=== PATIENT | female | born 1960 | race American Indian/Alaskan Native ===

== ENCOUNTER 2020-11-30 08:31 | Observation (INO) | payer MEDICARE ==
[2020-11-30] MEDS ORDERED: ONDANSETRON 4 MG/2 ML INJ IV ONE (09:11)
[2020-11-30] MEDS ORDERED: SODIUM CHLORIDE 0.9% 500 ML 500 ML IV ONE (09:11)
[2020-11-30] MEDS ORDERED: BENZONATATE 100 MG CAP PO ONE (09:11)
[2020-11-30] MEDS ORDERED: IPRATROPIUM/ALBUTEROL SULFATE 3 ML AMPUL.NEB IH ONE (09:12)
--- NOTE | 2020-11-30 09:14 | Emergency Department Report ---
HPI - General Chief Complaint: Upper Respiratory Infection Time Seen by Provider: 11/30/20 09:03 - HPI HPI: This is a 60-year-old -[place] female who presents to the emergency department via EMS from home with complaint of a 5-day history of nausea with vomiting, a mixed dry and productive cough, shortness of breath, and some chest wall pain when coughing. Patient has a history of a previous TIA, hypertension and insulin-dependent diabetes. Accu-Chek was 201 in route. No recent travel or sick contacts at home. No known exposure to anyone with COVID-19. Her primary care physician is a Dr. Gasper Fuller at [place], but she has not been able to see them regarding her symptoms. She denies any tobacco or illicit drug use. ED Past Medical Hx - Past Medical History Previous Medical History?: Yes Hx Hypertension: Yes Hx CVA: Yes Hx Diabetes: Yes - Social History Smoking Status: Current Every Day Smoker Substance Use Type: None, Marijuana - Medications Home Medications: Home Medications Medication Instructions Recorded Confirmed Last Taken Type Apixaban [Eliquis] 5 mg PO BID 11/30/20 11/30/20 11/30/20 History -1 Fluticasone/Salmeterol [Advair 1 puff IH BID 11/30/20 11/30/20 Unknown History Diskus 250-50 mcg] Insulin Glargine,Hum.rec.anlog 50 unit SQ QHS 11/30/20 11/30/20 Unknown History [Lantus Solostar] Levothyroxine Sodium [Synthroid] 175 mcg PO DAILY 11/30/20 11/30/20 Unknown History amLODIPine [Norvasc] 10 mg PO DAILY 11/30/20 11/30/20 Unknown History ED Review of Systems ROS: Stated complaint: DIFFICULTY BREATHING Other details as noted in HPI Comment: All other systems reviewed and negative Constitutional: denies: chills, fever Eyes: denies: eye pain, vision change ENT: denies: ear pain, throat pain Respiratory: cough, shortness of breath Cardiovascular: chest pain (Chest wall pain with coughing). denies: edema Gastrointestinal: nausea, vomiting. denies: abdominal pain Genitourinary: denies: dysuria, discharge Musculoskeletal: denies: back pain, arthralgia Skin: denies: rash, lesions Neurological: denies: headache, numbness Physical Exam - Physical Exam Vital Signs: Vital Signs 11/30/20 11/30/20 08:51 08:52 Temperature 99.6 F Pulse Rate 104 H Respiratory 24 Rate O2 Sat by Pulse 99 99 Oximetry Physical Exam: GENERAL: The patient is well-developed well-nourished. HENT: Normocephalic. Atraumatic. Patient has moist mucous membranes. EYES: Extraocular motions are intact. NECK: Supple. Trachea is midline. CHEST/LUNGS: Clear to auscultation. There is tachypnea but no accessory muscle use. A productive sounding cough is heard with coughing fits. HEART/CARDIOVASCULAR: Regular. There is mild tachycardia. There is no murmur. ABDOMEN: Abdomen is soft, nontender. Patient has normal bowel sounds. SKIN: Skin is warm and dry. NEURO: The patient is awake, alert, and oriented. The patient is cooperative. The patient has no focal neurologic deficits. Normal speech. MUSCULOSKELETAL: There is no tenderness or deformity. There is no limitation range of motion. ED Course Vital Signs 11/30/20 11/30/20 08:51 08:52 Temperature 99.6 F Pulse Rate 104 H Respiratory 24 Rate O2 Sat by Pulse 99 99 Oximetry - ABG Interpretation Ph: 7.433 PCO2: 33 PO2: 68 Bicarbonate: 22 Interpretation: other (hypoxemia) ED Medical Decision Making - Lab Data Result diagrams: 11/30/20 09:17 11/30/20 09:17 - EKG Data -: EKG Interpreted by Nm EKG shows normal: sinus rhythm, axis, intervals, QRS complexes, ST-T waves Rate: tachycardia (103 bpm) - EKG Data When compared to previous EKG there are: previous EKG unavailable Interpretation: normal EKG (with mild tachycardia. ) - Radiology Data Radiology results: image reviewed interpreted by me: Chest x-ray does not show any acute process. There are no pleural effusions, obvious pneumonia and there is no pneumothorax. No significant cardiomegaly. - Medical Decision Making This patient presents with a 5-day history of some shortness of breath, coughing, generalized weakness and fatigue, nausea with vomiting and some chest wall tenderness with coughing. Chest x-ray does not show any pneumonia, pleural effusions, pneumothorax, or any other acute process. EKG does not have any morphology consistent with ST elevation myocardial infarction. Patient's initial labs were mostly unremarkable including CBC, metabolic panel, negative troponin. However, during her ED course, the patient was seen having some low oxygen saturation intermittently, it worsened when the patient was laying on her side. An ABG was done that does show hypoxemia with an SPO2 of 68 and oxygen saturation of 92% on room air. With this patient's symptoms, as well as his current pandemic, the patient is at least moderate suspicion for having COVID-19. Further blood work was ordered and drawn. She has elevated inflammatory markers including D-dimer, LDH, CRP and ferritin levels. The patient has received IV fluid, antiemetics, IV analgesia, steroids, antihypertensive medication. A CT angiography of the chest has been ordered. Medicine will follow the CT angiography results and add heparin if necessary. Otherwise the patient will be admitted to the hospital for further evaluation and treatment and was accepted for admission by the hospitalist, Dr. Arango. Critical Care Time: No Critical care attestation.: If time is entered above; I have spent that time in minutes in the direct care of this critically ill patient, excluding procedure time. ED Disposition Clinical Impression: Suspected 2019 novel coronavirus infection, Hypoxemia Dyspnea Qualifiers: Dyspnea type: shortness of breath Qualified Code(s): R06.02 - Shortness of breath; R06.00 - Dyspnea, unspecified; R06.01 - Orthopnea Hypertension Qualifiers: Hypertension type: essential hypertension Qualified Code(s): I10 - Essential (primary) hypertension Disposition: OP ADMIT IP TO THIS HOSP Is pt being admited?: Yes Condition: Serious Time of Disposition: 13:06
--- NOTE | 2020-11-30 09:37 | XRay Report ---
CHEST 1 VIEW, 11/30/2020 8:29 AM CLINICAL INFORMATION/INDICATION: Shortness of breath. Cough. COMPARISON: None. FINDINGS: SUPPORT DEVICES: None. HEART: The cardiac silhouette is normal in size. LUNGS/PLEURA: The lungs are clear of focal airspace disease or significant pleural effusion. ADDITIONAL FINDINGS: No additional acute findings. IMPRESSION: 1. No evidence of acute cardiopulmonary process. Signer Name: Sue Sun MD Signed: 11/30/2020 9:33 AM Workstation Name: [id number]
[2020-11-30 09:55] LABS: Hematocrit 42.3 % (30.3-42.9); Hemoglobin 14.1 gm/dl (10.1-14.3); Mean Corpuscular HGB Conc 33 % (30-34); Mean Corpuscular Volume 90 fl (79-97); Platelet Count 252 K/mm3 (140-440); Red Blood Count 4.68 M/mm3 (3.65-5.03); Red Cell Distribution Width 14.9 % (13.2-15.2)
[2020-11-30 10:16] LABS: Alanine Aminotransferase 18 units/L (7-56); Albumin 4.1 g/dL (3.9-5); BUN/Creatinine Ratio 9; Blood Urea Nitrogen 10 mg/dL (7-17); Calcium 9.6 mg/dL (8.4-10.2); Hemolysis Index 9
[2020-11-30] MEDS ORDERED: KETOROLAC 30 MG/1 ML INJ IV ONE (10:59)
[2020-11-30 11:17] LABS: Band Neutrophils # (Manual) 0.1 K/mm3; Platelet Estimate Consistent w Auto; RBC Morphology Normal; Total Cells Counted 100
[2020-11-30 12:55] LABS: ABG Base Excess -1.6 mmol/L (-2.0-3.0); ABG HCO3 22.1 mmol/L (20.0-26.0); ABG Methemoglobin 0.6 % (0.0-1.5); ABG Oxygen Saturation 94.7 % (95.0-99.0); ABG PCO2 33.8 mm Hg; ABG PH 7.433 pH Units (7.350-7.450)
[2020-11-30] MEDS ORDERED: dexAMETHasone 4 MG/ML VIAL IV ONE (13:05)
[2020-11-30] MEDS ORDERED: MORPHINE 4 MG/1 ML INJ IV ONE (13:39)
[2020-11-30 14:47] LABS: C-Reactive Protein 1.8 mg/dL (0.00-1.30)
[2020-11-30] MEDS: HYDROmorphone 1 MG/1 ML INJ IV PRN ×2 (15:58→21:32)
[2020-12-01 00:02] LABS: Bilirubin,Urine NEG (Negative); Blood,Urine SM (Negative); Color,Urine Yellow (Yellow); Mucus,Urine 3+ /HPF; Urobilinogen,Urine < 2.0 mg/dL (<2.0)
--- NOTE | 2020-12-01 00:44 | History and Physical Report ---
History of Present Illness Date of examination: 11/30/20 Date of admission: 11/30/20 13:06 Chief complaint: Cough and shortness of breath History of present illness: 60-year-old -[place] female with multiple medical problems including insulin-dependent diabetes, hypertension, COPD, atrial fibrillation presents to the emergency room with shortness of breath and dry productive cough and nausea/vomiting. No exposure to coronavirus. Her active problem is cough and shortness of breath. Intermittently hypoxic while in the emergency room ABG with a PO2 of 68 and O2 sat of 92% - Past Medical History Previous Medical History?: Yes --Hypertension: Yes --CVA: Yes --Diabetes: Yes --Hypothyroidism Past surgical history N/a - Social History Smoking Status: Current Every Day Smoker Substance Use Type: None, Marijuana Family history Htn - Medications Home Medications: Home Medications Medication Instructions Recorded Confirmed Last Taken Type Apixaban [Eliquis] 5 mg PO BID 11/30/20 11/30/20 11/30/20 History -1 Fluticasone/Salmeterol [Advair 1 puff IH BID 11/30/20 11/30/20 Unknown History Diskus 250-50 mcg] Insulin Glargine,Hum.rec.anlog 50 unit SQ QHS 11/30/20 11/30/20 Unknown History [Lantus Solostar] Levothyroxine Sodium [Synthroid] 175 mcg PO DAILY 11/30/20 11/30/20 Unknown History amLODIPine [Norvasc] 10 mg PO DAILY 11/30/20 11/30/20 Unknown History Review of Systems ROS: Stated complaint: DIFFICULTY BREATHING Other details as noted in HPI Comment: All other systems reviewed and negative Constitutional: denies: chills, fever Eyes: denies: eye pain, vision change ENT: denies: ear pain, throat pain Respiratory: cough, shortness of breath Cardiovascular: chest pain (Chest wall pain with coughing). denies: edema Gastrointestinal: nausea, vomiting. denies: abdominal pain Genitourinary: denies: dysuria, discharge Musculoskeletal: denies: back pain, arthralgia Skin: denies: rash, lesions Neurological: denies: headache, numbness Medications and Allergies Allergies Allergy/AdvReac Type Severity Reaction Status Date / Time codeine Allergy Rash Verified 11/30/20 08:52 Home Medications Medication Instructions Recorded Confirmed Last Taken Type Apixaban [Eliquis] 5 mg PO BID 11/30/20 11/30/20 11/30/20 History -1 Fluticasone/Salmeterol [Advair 1 puff IH BID 11/30/20 11/30/20 Unknown History Diskus 250-50 mcg] Insulin Glargine,Hum.rec.anlog 50 unit SQ QHS 11/30/20 11/30/20 Unknown History [Lantus Solostar] Levothyroxine Sodium [Synthroid] 175 mcg PO DAILY 11/30/20 11/30/20 Unknown History amLODIPine [Norvasc] 10 mg PO DAILY 11/30/20 11/30/20 Unknown History Active Meds: Active Medications Amlodipine Besylate (Amlodipine 10 Mg Tab) 10 mg PO DAILY [facility] Hydromorphone HCl (Hydromorphone 1 Mg/1 Ml Inj) 0.5 mg IV Q3H PRN PRN Reason: Pain , Severe (7-10) Last Admin: 11/30/20 21:32 Dose: 0.5 mg Documented by: Miscellaneous Medication (Apixaban) 5 mg PO BID [facility] Miscellaneous Medication (Fluticasone/Salmeterol [Advair Diskus 250-50 Mcg]) 1 puff IH BID [facility] Miscellaneous Medication (Insulin Glargine,Hum.Rec.Anlog [Lantus Solostar]) 50 unit SQ QHS [facility] Miscellaneous Medication (Levothyroxine Sodium [Synthroid]) 175 mcg PO DAILY [facility] Exam - Constitutional Vitals: Temp Pulse Resp BP Pulse Ox 98.3 F 92 H 20 150/79 93 11/30/20 22:28 11/30/20 22:28 11/30/20 22:28 11/30/20 22:28 11/30/20 22:28 General appearance: Present: no acute distress, well-nourished - EENT Eyes: Present: PERRL ENT: hearing intact, clear oral mucosa - Neck Neck: Present: supple, normal ROM - Respiratory Respiratory effort: normal Respiratory: bilateral: CTA - Cardiovascular Heart rate: 78 Rhythm: regular Heart Sounds: Present: S1 & S2. Absent: rub, click - Extremities Extremities: pulses symmetrical, No edema Peripheral Pulses: within normal limits - Abdominal General gastrointestinal: Present: soft, non-tender, non-distended, normal bowel sounds Female genitourinary: Present: normal - Integumentary Integumentary: Present: clear, warm, dry - Musculoskeletal Musculoskeletal: gait normal, strength equal bilaterally - Psychiatric Psychiatric: appropriate mood/affect, intact judgment & insight - Neurologic Neurologic: CNII-XII intact, moves all extremities HEART Score - HEART Score Troponin: Troponin T < 0.010 ng/mL (0.00-0.029) 11/30/20 09:17 Results - Labs CBC & Chem 7: 11/30/20 09:17 11/30/20 09:17 Labs: Laboratory Last Values WBC 6.5 K/mm3 (4.5-11.0) 11/30/20 09:17 RBC 4.68 M/mm3 (3.65-5.03) 11/30/20 09:17 Hgb 14.1 gm/dl (10.1-14.3) 11/30/20 09:17 Hct 42.3 % (30.3-42.9) 11/30/20 09:17 MCV 90 fl (79-97) 11/30/20 09:17 MCH 30 pg (28-32) 11/30/20 09:17 MCHC 33 % (30-34) 11/30/20 09:17 RDW 14.9 % (13.2-15.2) 11/30/20 09:17 Plt Count 252 K/mm3 (140-440) 11/30/20 09:17 Add Manual Diff Complete 11/30/20 09:17 Total Counted 100 11/30/20 09:17 Seg Neuts % (Manual) 82.0 % (40.0-70.0) H 11/30/20 09:17 Band Neutrophils % 1.0 % 11/30/20 09:17 Lymphocytes % (Manual) 11.0 % (13.4-35.0) L 11/30/20 09:17 Monocytes % (Manual) 6.0 % (0.0-7.3) 11/30/20 09:17 Nucleated RBC % Not Reportable 11/30/20 09:17 Seg Neutrophils # Man 5.3 K/mm3 (1.8-7.7) 11/30/20 09:17 Band Neutrophils # 0.1 K/mm3 11/30/20 09:17 Lymphocytes # (Manual) 0.7 K/mm3 (1.2-5.4) L 11/30/20 09:17 Abs React Lymphs (Man) 0.0 K/mm3 11/30/20 09:17 Monocytes # (Manual) 0.4 K/mm3 (0.0-0.8) 11/30/20 09:17 Eosinophils # (Manual) 0.0 K/mm3 (0.0-0.4) 11/30/20 09:17 Basophils # (Manual) 0.0 K/mm3 (0.0-0.1) 11/30/20 09:17 Metamyelocytes # 0.0 K/mm3 11/30/20 09:17 Myelocytes # 0.0 K/mm3 11/30/20 09:17 Promyelocytes # 0.0 K/mm3 11/30/20 09:17 Blast Cells # 0.0 K/mm3 11/30/20 09:17 WBC Morphology Not Reportable 11/30/20 09:17 Hypersegmented Neuts Not Reportable 11/30/20 09:17 Hyposegmented Neuts Not Reportable 11/30/20 09:17 Hypogranular Neuts Not Reportable 11/30/20 09:17 Smudge Cells Not Reportable 11/30/20 09:17 Toxic Granulation Not Reportable 11/30/20 09:17 Toxic Vacuolation Not Reportable 11/30/20 09:17 Dohle Bodies Not Reportable 11/30/20 09:17 Pelger-Huet Anomaly Not Reportable 11/30/20 09:17 Peter Rods Not Reportable 11/30/20 09:17 Platelet Estimate Consistent w auto 11/30/20 09:17 Clumped Platelets Not Reportable 11/30/20 09:17 Plt Clumps, EDTA Not Reportable 11/30/20 09:17 Large Platelets Not Reportable 11/30/20 09:17 Giant Platelets Not Reportable 11/30/20 09:17 Platelet Satelliting Not Reportable 11/30/20 09:17 Plt Morphology Comment Not Reportable 11/30/20 09:17 RBC Morphology Normal 11/30/20 09:17 Dimorphic RBCs Not Reportable 11/30/20 09:17 Polychromasia Not Reportable 11/30/20 09:17 Hypochromasia Not Reportable 11/30/20 09:17 Poikilocytosis Not Reportable 11/30/20 09:17 Anisocytosis Not Reportable 11/30/20 09:17 Microcytosis Not Reportable 11/30/20 09:17 Macrocytosis Not Reportable 11/30/20 09:17 Spherocytes Not Reportable 11/30/20 09:17 Pappenheimer Bodies Not Reportable 11/30/20 09:17 Sickle Cells Not Reportable 11/30/20 09:17 Target Cells Not Reportable 11/30/20 09:17 Tear Drop Cells Not Reportable 11/30/20 09:17 Ovalocytes Not Reportable 11/30/20 09:17 Helmet Cells Not Reportable 11/30/20 09:17 [place] Bodies Not Reportable 11/30/20 09:17 [place] Rings Not Reportable 11/30/20 09:17 [place] Cells Not Reportable 11/30/20 09:17 Bite Cells Not Reportable 11/30/20 09:17 Crenated Cell Not Reportable 11/30/20 09:17 Elliptocytes Not Reportable 11/30/20 09:17 Acanthocytes (Spur) Not Reportable 11/30/20 09:17 Rouleaux Not Reportable 11/30/20 09:17 Hemoglobin C Crystals Not Reportable 11/30/20 09:17 Schistocytes Not Reportable 11/30/20 09:17 Malaria parasites Not Reportable 11/30/20 09:17 Juan Bodies Not Reportable 11/30/20 09:17 Hem Pathologist Commnt No 11/30/20 09:17 D-Dimer 1040.14 ng/mlDDU (0-234) H 11/30/20 13:16 ABG pH 7.433 pH Units (7.350-7.450) 11/30/20 12:35 ABG pCO2 33.8 mm Hg 11/30/20 12:35 ABG pO2 68.0 mm Hg (80.0-90.0) L 11/30/20 12:35 ABG HCO3 22.1 mmol/L (20.0-26.0) 11/30/20 12:35 ABG O2 Saturation 94.7 % (95.0-99.0) L 11/30/20 12:35 ABG O2 Content 16.5 (0.0-44) 11/30/20 12:35 ABG Base Excess -1.6 mmol/L (-2.0-3.0) 11/30/20 12:35 ABG Hemoglobin 12.7 gm/dl (12.0-16.0) 11/30/20 12:35 ABG Carboxyhemoglobin 1.5 % (0.0-5.0) 11/30/20 12:35 ABG Methemoglobin 0.6 % (0.0-1.5) 11/30/20 12:35 Oxyhemoglobin 92.7 % (95.0-99.0) L 11/30/20 12:35 FiO2 21 % 11/30/20 12:35 Sodium 133 mmol/L (137-145) L 11/30/20 09:17 Potassium 3.6 mmol/L (3.6-5.0) 11/30/20 09:17 Chloride 94.9 mmol/L (98-107) L 11/30/20 09:17 Carbon Dioxide 23 mmol/L (22-30) 11/30/20 09:17 Anion Gap 19 mmol/L 11/30/20 09:17 BUN 10 mg/dL (7-17) 11/30/20 09:17 Creatinine 1.1 mg/dL (0.6-1.2) 11/30/20 09:17 Estimated GFR > 60 ml/min 11/30/20 09:17 BUN/Creatinine Ratio 9 % 11/30/20 09:17 Glucose 181 mg/dL (65-100) H 11/30/20 09:17 POC Glucose 195 mg/dL (70-105) H 11/30/20 16:53 Calcium 9.6 mg/dL (8.4-10.2) 11/30/20 09:17 Ferritin 386.9 ng/mL (10.0-200.0) H 11/30/20 13:16 Total Bilirubin 0.30 mg/dL (0.1-1.2) 11/30/20 09:17 AST 31 units/L (5-40) 11/30/20 09:17 ALT 18 units/L (7-56) 11/30/20 09:17 Alkaline Phosphatase 108 units/L (35-129) 11/30/20 09:17 Lactate Dehydrogenase 277 units/L (91-180) H 11/30/20 13:16 Troponin T < 0.010 ng/mL (0.00-0.029) 11/30/20 09:17 C-Reactive Protein 1.80 mg/dL (0.00-1.30) H 11/30/20 13:16 Total Protein 8.7 g/dL (6.3-8.2) H 11/30/20 09:17 Albumin 4.1 g/dL (3.9-5) 11/30/20 09:17 Albumin/Globulin Ratio 0.9 % 11/30/20 09:17 Urine Color Yellow (Yellow) 11/30/20 23:25 Urine Turbidity Slightly-cloudy (Clear) 11/30/20 23:25 Urine pH 6.0 (5.0-7.0) 11/30/20 23:25 Ur Specific [place] 1.023 (1.003-1.030) 11/30/20 23:25 Urine Protein 100 mg/dl mg/dL (Negative) 11/30/20 23:25 Urine Glucose (UA) Neg mg/dL (Negative) 11/30/20 23:25 Urine Ketones 20 mg/dL (Negative) 11/30/20 23:25 Urine Blood Sm (Negative) 11/30/20 23:25 Urine Nitrite Neg (Negative) 11/30/20 23:25 Urine Bilirubin Neg (Negative) 11/30/20 23:25 Urine Urobilinogen < 2.0 mg/dL (<2.0) 11/30/20 23:25 Ur Leukocyte Esterase Neg (Negative) 11/30/20 23:25 Urine WBC (Auto) 5.0 /HPF (0.0-6.0) 11/30/20 23:25 Urine RBC (Auto) 1.0 /HPF (0.0-6.0) 11/30/20 23:25 U Epithel Cells (Auto) 1.0 /HPF (0-13.0) 11/30/20 23:25 Urine Mucus 3+ /HPF 11/30/20 23:25 - Imaging and Cardiology EKG: report reviewed (Sinus rhythm no acute ST-T wave changes) Chest x-ray: report reviewed Imaging and Cardiology: Chest x-ray No evidence of acute cardiopulmonary process Thakkar/IV: Voiding Method Toilet Assessment and Plan Advance Directives: Yes (Full code) VTE prophylaxis?: Chemical Plan of care discussed with patient/family: Yes - Patient Problems (1) Acute respiratory failure with hypoxia Current Visit: Yes Status: Acute Plan to address problem: Oxygen supplementation as necessary Transient (2) Suspected 2019 novel coronavirus infection Current Visit: Yes Status: Acute Plan to address problem: Coronavirus PCR in the a.m. Initiated on IV dexamethasone ID consult was not requested If patient is doing well on room air will discharge in 24 to 48 hours (3) Hypertension Current Visit: Yes Status: Chronic Qualifiers: Hypertension type: essential hypertension Qualified Code(s): I10 - Essential (primary) hypertension Plan to address problem: Continue antihypertensives and adjust medications (4) IDDM (insulin dependent diabetes mellitus) Current Visit: Yes Status: Chronic Plan to address problem: Continue her home insulin and coverage (5) Hypothyroidism (acquired) Current Visit: Yes Status: Chronic Plan to address problem: Continue Synthroid and check TSH (6) A-fib Current Visit: Yes Status: Chronic Qualifiers: Atrial fibrillation type: persistent (not longstanding) Qualified Code(s): I48.19 - Other persistent atrial fibrillation; I48.1 - Persistent atrial fibrillation Plan to address problem: On Eliquis (7) COPD (chronic obstructive pulmonary disease) Current Visit: Yes Status: Chronic Qualifiers: Emphysema type: unspecified Plan to address problem: Continue Advair and neb treatments as needed (8) DVT prophylaxis Current Visit: Yes Status: Acute Plan to address problem: On Lovenox and GI prophylaxis
[2020-12-01] MEDS ORDERED: NON-FORMULARY EACH (Apixaban 5 MG Tablet) PO SCH (00:45)
[2020-12-01] MEDS ORDERED: NON-FORMULARY EACH (Fluticasone/Salmeterol [Advair Diskus 250-50 Mcg] 1 EACH Blst.W.Dev) IH SCH (00:45)
[2020-12-01] MEDS ORDERED: AZITHROMYCIN/NS 500 MG/250 ML 500 MG/250 ML BAG IV SCH (02:00)
[2020-12-01] MEDS: APIXABAN 5 MG TAB PO SCH ×3 (02:01→22:56)
[2020-12-01] MEDS: cefTRIAXone/NS 2 GM/100 ML 2 GM/100 ML BAG IV SCH (03:25)
[2020-12-01] MEDS: LEVOTHYROXINE 75 MCG TAB PO SCH (05:30)
[2020-12-01] MEDS: LEVOTHYROXINE 100 MCG TAB PO SCH (05:31)
[2020-12-01] MEDS: ARFORMOTEROL 15 MCG/2 ML NEBU IH SCH ×2 (07:29→19:32)
[2020-12-01] MEDS: BUDESONIDE 0.5 MG/2 ML NEBU IH SCH ×2 (07:29→19:32)
[2020-12-01] MEDS: INSULIN LISPRO 100 UNIT/ML SUB-Q SCH ×4 (08:22→22:57)
[2020-12-01] MEDS: HYDROmorphone 1 MG/1 ML INJ IV PRN ×2 (09:40→13:20)
[2020-12-01] MEDS ORDERED: LEVOTHYROXINE SODIUM 175 MCG PO SCH (10:00)
[2020-12-01] MEDS ORDERED: dexAMETHasone 4 MG/ML VIAL IV SCH (10:00)
--- NOTE | 2020-12-01 11:27 | Electrocardiograph Report ---
[facility] Test Date: 2020-11-30 Test Time: 09:40:33 Pat Name: BRAULIO DIETZ Department: Room: A358 Gender: F Pull Up Hand: ELOISE : 1960 Requested By: TOY EVANS Order Number: [id number] Reading MD: Frank Sheridan Measurements Intervals [place] Rate: 103 P: 96 MI: 188 QRS: 1 QRSD: 98 T: QT: QTc: 0 Interpretive Statements Sinus tachycardia non specific st-t No previous ECG available for comparison Electronically Signed On 12-01-2020 11:27:01 EDT by Frank Sheridan
[2020-12-01] MEDS: amLODIPine 10 MG TAB PO SCH ×2 (13:30→18:08)
[2020-12-01] MEDS ORDERED: ONDANSETRON 4 MG/2 ML INJ IV PRN (17:58)
[2020-12-01] MEDS ORDERED: INSULIN GLARGINE 100 UNITS/ML SUB-Q SCH (22:00)
[2020-12-01] MEDS ORDERED: NON-FORMULARY EACH (Insulin Glargine,Hum.Rec.Anlog [Lantus Solostar] 100 UNIT/ML Insuln.Pe SQ SCH (22:00)
[2020-12-01] MEDS: AZITHROMYCIN 250 MG TAB PO SCH (22:56)
[2020-12-02] MEDS: BENZONATATE 100 MG CAP PO SCH ×2 (02:27→09:10)
[2020-12-02] MEDS: cefTRIAXone/NS 2 GM/100 ML 2 GM/100 ML BAG IV SCH (02:28)
[2020-12-02] MEDS: LEVOTHYROXINE 75 MCG TAB PO SCH (05:08)
[2020-12-02] MEDS: LEVOTHYROXINE 100 MCG TAB PO SCH (05:08)
[2020-12-02 05:14] VITALS: BP 132/79
[2020-12-02] MEDS: ARFORMOTEROL 15 MCG/2 ML NEBU IH SCH (08:23)
[2020-12-02] MEDS: BUDESONIDE 0.5 MG/2 ML NEBU IH SCH (08:23)
--- NOTE | 2020-12-02 08:31 | Progress Note ---
Assessment and Plan Assessment and plan: (1) Acute respiratory failure with hypoxia Current Visit: Yes Status: Acute Plan to address problem: Oxygen supplementation as necessary Transient (2) Suspected 2019 novel coronavirus infection Current Visit: Yes Status: Acute Plan to address problem: Coronavirus PCR in the a.m. Initiated on IV dexamethasone (3) Hypertension Current Visit: Yes Status: Chronic Qualifiers: Hypertension type: essential hypertension Qualified Code(s): I10 - Essential (primary) hypertension Plan to address problem: Continue antihypertensives and adjust medications (4) IDDM (insulin dependent diabetes mellitus) Current Visit: Yes Status: Chronic Plan to address problem: Continue her home insulin and coverage (5) Hypothyroidism (acquired) Current Visit: Yes Status: Chronic Plan to address problem: Continue Synthroid and check TSH (6) A-fib Current Visit: Yes Status: Chronic Qualifiers: Atrial fibrillation type: persistent (not longstanding) Qualified Code(s): I48.19 - Other persistent atrial fibrillation; I48.1 - Persistent atrial fibrillation Plan to address problem: On Eliquis (7) COPD (chronic obstructive pulmonary disease) Current Visit: Yes Status: Chronic Qualifiers: Emphysema type: unspecified Plan to address problem: Continue Advair and neb treatments as needed (8) DVT prophylaxis Current Visit: Yes Status: Acute Plan to address problem: On Lovenox and GI prophylaxis History Interval history: 12/01. COVID-19 test pending. On dexamethasone and antibiotics. Also has nausea. Zofran ordered Hospitalist Physical - Physical exam Narrative exam: VITAL SIGNS: Reviewed. GENERAL: Awake HEAD: No signs of head trauma. EYES: Pupils are equal. Extraocular motions intact. MOUTH: Oropharynx is normal. NECK: No adenopathy, no JVD. CHEST: Wheeze bilaterally CARDIAC: normal S1 and S2, without murmurs, gallops, or rubs. ABDOMEN: Soft, non tender and non distended. No rebound or guarding, and no masses palpated. Bowel Sounds normal. MUSCULOSKELETAL: No edema NEUROLOGIC EXAM: Alert and oriented x3. No focal neurologic deficits SKIN: No obvious lesions - Constitutional Vitals: Temp Pulse Resp BP Pulse Ox 98.2 F 71 20 132/79 95 12/02/20 05:14 12/02/20 05:12 12/02/20 05:12 12/02/20 05:12 12/02/20 05:12 HEART Score - HEART Score Troponin: Troponin T < 0.010 ng/mL (0.00-0.029) 11/30/20 09:17 Results - Labs CBC & Chem 7: 11/30/20 09:17 11/30/20 09:17 Labs: Laboratory Last Values WBC 6.5 K/mm3 (4.5-11.0) 11/30/20 09:17 RBC 4.68 M/mm3 (3.65-5.03) 11/30/20 09:17 Hgb 14.1 gm/dl (10.1-14.3) 11/30/20 09:17 Hct 42.3 % (30.3-42.9) 11/30/20 09:17 MCV 90 fl (79-97) 11/30/20 09:17 MCH 30 pg (28-32) 11/30/20 09:17 MCHC 33 % (30-34) 11/30/20 09:17 RDW 14.9 % (13.2-15.2) 11/30/20 09:17 Plt Count 252 K/mm3 (140-440) 11/30/20 09:17 Add Manual Diff Complete 11/30/20 09:17 Total Counted 100 11/30/20 09:17 Seg Neuts % (Manual) 82.0 % (40.0-70.0) H 11/30/20 09:17 Band Neutrophils % 1.0 % 11/30/20 09:17 Lymphocytes % (Manual) 11.0 % (13.4-35.0) L 11/30/20 09:17 Monocytes % (Manual) 6.0 % (0.0-7.3) 11/30/20 09:17 Nucleated RBC % Not Reportable 11/30/20 09:17 Seg Neutrophils # Man 5.3 K/mm3 (1.8-7.7) 11/30/20 09:17 Band Neutrophils # 0.1 K/mm3 11/30/20 09:17 Lymphocytes # (Manual) 0.7 K/mm3 (1.2-5.4) L 11/30/20 09:17 Abs React Lymphs (Man) 0.0 K/mm3 11/30/20 09:17 Monocytes # (Manual) 0.4 K/mm3 (0.0-0.8) 11/30/20 09:17 Eosinophils # (Manual) 0.0 K/mm3 (0.0-0.4) 11/30/20 09:17 Basophils # (Manual) 0.0 K/mm3 (0.0-0.1) 11/30/20 09:17 Metamyelocytes # 0.0 K/mm3 11/30/20 09:17 Myelocytes # 0.0 K/mm3 11/30/20 09:17 Promyelocytes # 0.0 K/mm3 11/30/20 09:17 Blast Cells # 0.0 K/mm3 11/30/20 09:17 WBC Morphology Not Reportable 11/30/20 09:17 Hypersegmented Neuts Not Reportable 11/30/20 09:17 Hyposegmented Neuts Not Reportable 11/30/20 09:17 Hypogranular Neuts Not Reportable 11/30/20 09:17 Smudge Cells Not Reportable 11/30/20 09:17 Toxic Granulation Not Reportable 11/30/20 09:17 Toxic Vacuolation Not Reportable 11/30/20 09:17 Dohle Bodies Not Reportable 11/30/20 09:17 Pelger-Huet Anomaly Not Reportable 11/30/20 09:17 Peter Rods Not Reportable 11/30/20 09:17 Platelet Estimate Consistent w auto 11/30/20 09:17 Clumped Platelets Not Reportable 11/30/20 09:17 Plt Clumps, EDTA Not Reportable 11/30/20 09:17 Large Platelets Not Reportable 11/30/20 09:17 Giant Platelets Not Reportable 11/30/20 09:17 Platelet Satelliting Not Reportable 11/30/20 09:17 Plt Morphology Comment Not Reportable 11/30/20 09:17 RBC Morphology Normal 11/30/20 09:17 Dimorphic RBCs Not Reportable 11/30/20 09:17 Polychromasia Not Reportable 11/30/20 09:17 Hypochromasia Not Reportable 11/30/20 09:17 Poikilocytosis Not Reportable 11/30/20 09:17 Anisocytosis Not Reportable 11/30/20 09:17 Microcytosis Not Reportable 11/30/20 09:17 Macrocytosis Not Reportable 11/30/20 09:17 Spherocytes Not Reportable 11/30/20 09:17 Pappenheimer Bodies Not Reportable 11/30/20 09:17 Sickle Cells Not Reportable 11/30/20 09:17 Target Cells Not Reportable 11/30/20 09:17 Tear Drop Cells Not Reportable 11/30/20 09:17 Ovalocytes Not Reportable 11/30/20 09:17 Helmet Cells Not Reportable 11/30/20 09:17 [place] Bodies Not Reportable 11/30/20 09:17 [place] Rings Not Reportable 11/30/20 09:17 Amber Cells Not Reportable 11/30/20 09:17 Bite Cells Not Reportable 11/30/20 09:17 Crenated Cell Not Reportable 11/30/20 09:17 Elliptocytes Not Reportable 11/30/20 09:17 Acanthocytes (Spur) Not Reportable 11/30/20 09:17 Rouleaux Not Reportable 11/30/20 09:17 Hemoglobin C Crystals Not Reportable 11/30/20 09:17 Schistocytes Not Reportable 11/30/20 09:17 Malaria parasites Not Reportable 11/30/20 09:17 Juan Bodies Not Reportable 11/30/20 09:17 Hem Pathologist Commnt No 11/30/20 09:17 D-Dimer 1040.14 ng/mlDDU (0-234) H 11/30/20 13:16 ABG pH 7.433 pH Units (7.350-7.450) 11/30/20 12:35 ABG pCO2 33.8 mm Hg 11/30/20 12:35 ABG pO2 68.0 mm Hg (80.0-90.0) L 11/30/20 12:35 ABG HCO3 22.1 mmol/L (20.0-26.0) 11/30/20 12:35 ABG O2 Saturation 94.7 % (95.0-99.0) L 11/30/20 12:35 ABG O2 Content 16.5 (0.0-44) 11/30/20 12:35 ABG Base Excess -1.6 mmol/L (-2.0-3.0) 11/30/20 12:35 ABG Hemoglobin 12.7 gm/dl (12.0-16.0) 11/30/20 12:35 ABG Carboxyhemoglobin 1.5 % (0.0-5.0) 11/30/20 12:35 ABG Methemoglobin 0.6 % (0.0-1.5) 11/30/20 12:35 Oxyhemoglobin 92.7 % (95.0-99.0) L 11/30/20 12:35 FiO2 21 % 11/30/20 12:35 Sodium 133 mmol/L (137-145) L 11/30/20 09:17 Potassium 3.6 mmol/L (3.6-5.0) 11/30/20 09:17 Chloride 94.9 mmol/L (98-107) L 11/30/20 09:17 Carbon Dioxide 23 mmol/L (22-30) 11/30/20 09:17 Anion Gap 19 mmol/L 11/30/20 09:17 BUN 10 mg/dL (7-17) 11/30/20 09:17 Creatinine 1.1 mg/dL (0.6-1.2) 11/30/20 09:17 Estimated GFR > 60 ml/min 11/30/20 09:17 BUN/Creatinine Ratio 9 % 11/30/20 09:17 Glucose 181 mg/dL (65-100) H 11/30/20 09:17 POC Glucose 211 mg/dL (70-105) H 12/01/20 21:33 Hemoglobin A1c 8.2 % (4-6) H 12/02/20 04:06 Calcium 9.6 mg/dL (8.4-10.2) 11/30/20 09:17 Ferritin 386.9 ng/mL (10.0-200.0) H 11/30/20 13:16 Total Bilirubin 0.30 mg/dL (0.1-1.2) 11/30/20 09:17 AST 31 units/L (5-40) 11/30/20 09:17 ALT 18 units/L (7-56) 11/30/20 09:17 Alkaline Phosphatase 108 units/L (35-129) 11/30/20 09:17 Lactate Dehydrogenase 277 units/L (91-180) H 11/30/20 13:16 Troponin T < 0.010 ng/mL (0.00-0.029) 11/30/20 09:17 C-Reactive Protein 1.80 mg/dL (0.00-1.30) H 11/30/20 13:16 Total Protein 8.7 g/dL (6.3-8.2) H 11/30/20 09:17 Albumin 4.1 g/dL (3.9-5) 11/30/20 09:17 Albumin/Globulin Ratio 0.9 % 11/30/20 09:17 Procalcitonin < 0.05 ng/mL (<0.15) 11/30/20 13:16 TSH 1.240 mlU/mL (0.270-4.200) 12/01/20 01:37 Urine Color Yellow (Yellow) 11/30/20 23:25 Urine Turbidity Slightly-cloudy (Clear) 11/30/20 23:25 Urine pH 6.0 (5.0-7.0) 11/30/20 23:25 Ur Specific [place] 1.023 (1.003-1.030) 11/30/20 23:25 Urine Protein 100 mg/dl mg/dL (Negative) 11/30/20 23:25 Urine Glucose (UA) Neg mg/dL (Negative) 11/30/20 23:25 Urine Ketones 20 mg/dL (Negative) 11/30/20 23:25 Urine Blood Sm (Negative) 11/30/20 23:25 Urine Nitrite Neg (Negative) 11/30/20 23:25 Urine Bilirubin Neg (Negative) 11/30/20 23:25 Urine Urobilinogen < 2.0 mg/dL (<2.0) 11/30/20 23:25 Ur Leukocyte Esterase Neg (Negative) 11/30/20 23:25 Urine WBC (Auto) 5.0 /HPF (0.0-6.0) 11/30/20 23:25 Urine RBC (Auto) 1.0 /HPF (0.0-6.0) 11/30/20 23:25 U Epithel Cells (Auto) 1.0 /HPF (0-13.0) 11/30/20 23:25 Urine Mucus 3+ /HPF 11/30/20 23:25 Coronavirus (PCR) Negative (Negative) 11/30/20 Unknown Thakkar/IV: Voiding Method Toilet Active Medications - Current Medications Current Medications: Generic Name Dose Route Start Last Admin Trade Name Freq PRN Reason Stop Dose Admin Amlodipine Besylate 10 mg 12/01/20 10:00 12/01/20 18:08 Amlodipine 10 Mg Tab PO 10 mg DAILY KEREN Administration Apixaban 5 mg 12/01/20 00:45 12/01/20 22:56 Apixaban 5 Mg Tab PO 5 mg BID KEREN Administration Arformoterol Tartrate 15 mcg 12/01/20 08:00 12/02/20 08:23 Arformoterol 15 Mcg/2 Ml Nebu IH 15 mcg Q12HRT KEREN Administration Azithromycin 500 mg 12/01/20 22:00 12/01/20 22:56 Azithromycin 250 Mg Tab PO 12/04/20 22:01 500 mg QHS KEREN Administration Benzonatate 100 mg 12/02/20 03:00 12/02/20 02:27 Benzonatate 100 Mg Cap PO 12/07/20 02:59 100 mg Q8H KEREN Administration Budesonide 0.5 mg 12/01/20 08:00 12/02/20 08:23 Budesonide 0.5 Mg/2 Ml Nebu IH 0.5 mg Q12HRT KEREN Administration Hydromorphone HCl 0.5 mg 11/30/20 15:49 12/01/20 09:40 Hydromorphone 1 Mg/1 Ml Inj IV 0.5 mg Q3H PRN Administration Pain , Severe (7-10) Ceftriaxone Sodium 2 gm in 100 mls @ 200 mls/hr 12/01/20 02:00 12/02/20 02:58 Rocephin/Ns 2 Gm/100 Ml IV Infused Q24H [facility] Infusion Protocol Methylprednisolone Sodium 100 mls @ 200 mls/hr 12/02/20 09:00 Succinate 40 mg/ Sodium IV Chloride Q8HR [facility] Insulin Glargine 50 units 12/01/20 22:00 12/01/20 22:56 Insulin Glargine 100 Units/Ml SUB-Q 50 units QHS [facility] Administration Insulin Human Lispro 0 unit 12/01/20 07:30 12/01/20 22:57 Insulin Lispro 100 Unit/Ml SUB-Q Not Given ACHS [facility] Protocol Levothyroxine Sodium 100 mcg 12/01/20 06:00 12/02/20 05:08 Levothyroxine 100 Mcg Tab PO 100 mcg DAILY@0600 KEREN Administration Levothyroxine Sodium 75 mcg 12/01/20 06:00 12/02/20 05:08 Levothyroxine 75 Mcg Tab PO 75 mcg DAILY@0600 KEREN Administration Ondansetron HCl 4 mg 12/01/20 17:58 Ondansetron 4 Mg/2 Ml Inj IV Q8H PRN Nausea And Vomiting Nutrition/Malnutrition Assess - Dietary Evaluation Nutrition/Malnutrition Findings: Nutrition Notes Start: 12/01/20 10:17 Freq: Status: Active Protocol: Document 12/01/20 10:17 (Rec: 12/01/20 10:18 [id number]) Nutrition Notes Need for 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 Pt did not answer x2. Nutrition Intervention Follow-Up By: 12/05/20 Additional Comments FU for diet education
--- NOTE | 2020-12-02 08:41 | Discharge Summary ---
Providers - Providers Date of Admission: 11/30/20 13:06 Date of discharge: 12/02/20 Attending physician: ELOISA PEREZ Primary care physician: WAI GRANADOS Hospitalization Condition: Serious Hospital course: 60-year-old -Citizen Of The [place] female with multiple medical problems including insulin-dependent diabetes, hypertension, COPD, atrial fibrillation presents to the emergency room with shortness of breath and dry productive cough and nausea/vomiting. No exposure to coronavirus. Her active problem is cough and shortness of breath. Intermittently hypoxic while in the emergency room ABG with a PO2 of 68 and O2 sat of 92%. She she was admitted to the hospital for further evaluation. Chest x-ray was negative for any acute cardiopulmonary process. She was tried on antibiotics and dexamethasone when COVID-19 test was ordered. Hospital course Patient states that she has a history of COPD and uses oxygen intermittently at home. Her COVID-19 test is negative. She is wheezing but she is saturating well on room air. She will be discharged on prednisone and also continue using COPD medications for now. She has been advised to follow-up with her PCP and pulmonology in the office. She agrees with management Core Measure Documentation - Palliative Care Palliative Care/ Comfort Measures: Not Applicable - Core Measures Any of the following diagnoses?: none Exam - Physical Exam Narrative exam: VITAL SIGNS: Reviewed. GENERAL: Awake HEAD: No signs of head trauma. EYES: Pupils are equal. Extraocular motions intact. MOUTH: Oropharynx is normal. NECK: No adenopathy, no JVD. CHEST: Wheeze bilaterally CARDIAC: normal S1 and S2, without murmurs, gallops, or rubs. ABDOMEN: Soft, non tender and non distended. No rebound or guarding, and no masses palpated. Bowel Sounds normal. MUSCULOSKELETAL: No edema NEUROLOGIC EXAM: Alert and oriented x3. No focal neurologic deficits SKIN: No obvious lesions - Constitutional Vitals: Temp Pulse Resp BP Pulse Ox 98.2 F 71 20 132/79 95 12/02/20 05:14 12/02/20 05:12 12/02/20 05:12 12/02/20 05:12 12/02/20 05:12 Plan Diet: low fat, low cholesterol, low salt, diabetic Additional Instructions: Continue prednisone as ordered. Continue inhalers. Follow-up with primary medical doctor in 1 to 2 weeks Prescriptions: Azithromycin [Zithromax TAB] 250 mg PO QHS #4 tablet Cefpodoxime Proxetil 200 mg PO Q12H #10 tablet predniSONE [Deltasone] 40 mg PO QDAY #10 tab Benzonatate [Tessalon Perles] 100 mg PO Q8H #15 capsule
[2020-12-02] MEDS ORDERED: methylPREDNISolone Sod Suc 40 MG in SODIUM CHLORIDE 0.9% 100 ML IV SCH (09:00)
[2020-12-02] MEDS: AZITHROMYCIN 250 MG TAB PO SCH (09:09)
[2020-12-02] MEDS: amLODIPine 10 MG TAB PO SCH (09:10)
[2020-12-02] MEDS: APIXABAN 5 MG TAB PO SCH (09:10)
== END 2020-12-02 10:18 | disposition home or self-care (01) ==
LOC: ED 08:31 → 3A 13:06
PROVIDERS: ADMIT Internal Medicine; ATTEND Internal Medicine
DX: J96.01 Acute respiratory failure with hypoxia (principal); Z20.822 Contact with and (suspected) exposure to COVID-19; I10 Essential (primary) hypertension; E11.9 Type 2 diabetes mellitus without complications; E03.9 Hypothyroidism, unspecified; I48.91 Unspecified atrial fibrillation; J44.9 Chronic obstructive pulmonary disease, unspecified; F17.210 Nicotine dependence, cigarettes, uncomplicated; Z86.73 Personal history of transient ischemic attack (TIA), and cerebral infarction without residual deficits; Z79.4 Long term (current) use of insulin
CPT/HCPCS: 36415; 71045; 80053; 81001; 82728; 82803; 82962; 83036; 83615; 84145; 84443; 84484; 85007; 85025; 85379; 86140; 93005; 94640; 94644; 96365; 96366; 96367; 96375; 96376; 99285; G0378; J0456; J0696; J1100; J1170; J1885; J2270; J2405; J7040; U0003; J1815